=== PATIENT | male | born 1970 | race Caucasian/White ===

== ENCOUNTER → 2023-02-20 | Outpatient (CLI) | payer BC ==
--- NOTE | 2023-02-20 15:02 | P.PN ---
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 Diagnosis was established around October 2022 and the patient is coming in for a compliancy check. Unfortunately, he is having some difficulties in tolerating the CPAP unit and he feels that he is unable to exhale at a pressure of 14 cm of water. This has been clearly reflect in his compliance data. His overall compl iancy for more than 4 hours is in order of 23%. He has used the machine only 50% of the time over the past 1 month. He feels the pressure is quite high. Nevertheless, once the machine is on, the patient's AHI has been down to 2.0. His leak is been in the order of 5 L/m. The patient is using his simplus all facemask. On the days where the patient has successful therapy, he feels better more refreshed and alert during the day. BP is 138/89, pulse is 91, respirations 16, weight is 263, Viola score is at 14. Saturations 95% on room air oxygen. Temperature is 98.4 The patient appeared well nourished and normally developed. Vital signs as documented. Head exam is unremarkable. No scleral icterus or corneal arcus noted. Neck is without jugular venous distension, thyromegaly, or carotid bruits. Carotid upstrokes are brisk bilaterally. Lungs are clear to auscultation and percussion. Cardiac exam reveals the PMI to be normally sized and situated. Rhythm is regular. First and second heart sounds normal. No murmurs, rubs or gallops. Abdominal exam reveals normal bowel sounds, no masses, no organomegaly and no aortic enlargement. Extremities are nonedematous and both femoral and ped al pulses are normal.Examination of the skin revealed no evidence of significant rashes, suspicious appearing nevi or other concerning lesions.Neurologically, the patient is awake and alert and the patient does not have any focal neurological deficit. Cranial nerves are essentially intact. Assessment Severe PAOLO with an AHI of 80. The patient is currently utilizing his CPAP machine at a pressure of 14 cm of water. He is still having difficulties in tolerating CPAP unit. His compliancy data suboptimal and the patient needs utilized the machine for longer number of hours. The patient has difficulties in tolerating the higher pressure of 14 cm of water. Chronic hypersomnia, Viola score of 14 Severe nocturnal oxygen desaturation related to obstructive sleep apnea Bilateral tonsillar enlargements Hemochromatosis History of Lyme's disease Plan Will switch this patient to an APAP mode. I recommend switching him to a pressure of 4/12 cm of water and the patient will be given a Airfit F20 fullface mask large size. May consider an ENT evaluation/tonsillectomy she continues to have difficulties in tolerating the CPAP therapy. I'm hoping to the with change in the pressure setting and the mask interface, which should be able to achieve better compliancy. I'm giving the patient short-term follow-up and the patient was seen back in the office in 30-90 days.
== END ==
LOC: 3 N SLEEP 14:07
PROVIDERS: ATTEND Internal Medicine Critical Care Medicine
DX: G47.33 Obstructive sleep apnea (adult) (pediatric) (principal); J35.1 Hypertrophy of tonsils; E83.119 Hemochromatosis, unspecified; Z86.19 Personal history of other infectious and parasitic diseases; Z99.89 Dependence on other enabling machines and devices
CPT/HCPCS: 99212